=== PATIENT | male | born 1965 ===

== ENCOUNTER 2017-11-17 07:58 | Outpatient (CLI) | payer BC ==
[~2017-11-17] VITALS: Ht 167.6 cm; Wt 93.4 kg
[2017-11-17] MEDS ORDERED: CEFUROXIME500 MG PO (09:14)
[2017-11-17] MEDS ORDERED: FLONASE16 GM NASAL (09:14)
[2017-11-17] MEDS ORDERED: CLARITIN10 MG PO (09:14)
== END 2017-11-17 08:15 | disposition home or self-care (01) ==
LOC: OFIC 805 07:58
DX: J31.0 Chronic rhinitis (principal); J34.3 Hypertrophy of nasal turbinates; G47.33 Obstructive sleep apnea (adult) (pediatric); E66.8 Other obesity; J32.8 Other chronic sinusitis; J34.2 Deviated nasal septum; J38.7 Other diseases of larynx

== ENCOUNTER 2018-01-05 11:36 | Outpatient (CLI) | payer BC ==
[~2018-01-05] VITALS: Ht 152.4 cm; Wt 93.0 kg
[~2018-01-05 11:36] MED LIST: CEFUROXIME500 MG PO; CLARITIN10 MG PO; FLONASE16 GM NASAL
[2018-01-05] MEDS ORDERED: CLARITIN10 MG PO (13:02)
[2018-01-05] MEDS ORDERED: FLONASE16 GM NASAL (13:02)
== END 2018-01-05 11:50 | disposition home or self-care (01) ==
LOC: OFIC 805 11:36
DX: J38.7 Other diseases of larynx (principal); J34.2 Deviated nasal septum; J32.8 Other chronic sinusitis; G47.33 Obstructive sleep apnea (adult) (pediatric); J34.3 Hypertrophy of nasal turbinates; J31.0 Chronic rhinitis